=== PATIENT | male | born 1975 | race Two or more races ===

== ENCOUNTER 2023-06-22 08:41 | Emergency (ER) | payer OTHER ==
[~2023-06-22] VITALS: Ht 167.6 cm; Wt 64.9 kg
[~2023-06-22 08:41] MED LIST: PANADOL MAXIMU500 MG PO
[2023-06-22] MEDS ORDERED: TRUVADA 100 MG1 EACH PO (09:07)
[2023-06-22] MEDS ORDERED: EZALLOR SPRINKL10 MG PO (09:07)
== END 2023-06-22 13:05 | disposition left against medical advice (07) ==
LOC: ER 08:41
DX: B96.0 Mycoplasma pneumoniae [M. pneumoniae] as the cause of diseases classified elsewhere (principal)